=== PATIENT | female | born 1995 | race Caucasian/White ===

== ENCOUNTER 2017-02-11 09:42 | Emergency (ER) | payer OTHER ==
[~2017-02-11] VITALS: Ht 157.5 cm; Wt 53.1 kg
[2017-02-11 11:17] VITALS: BP 113/70
--- NOTE | 2017-02-13 07:39 | Emergency Room Report ---
History of Present Illness General Chief Complaint: Female Urogenital Problems Source: Patient Present Illness HPI Patient presents with complaints of possible retained tampon Patient reports that she feels she had pulled on the string yesterday however did not feel that the rest of the tampon came out with it This happened essentially yesterday Denies any abdominal pain denies any vaginal discomfort Denies any vomiting or diarrhea Patient History Past Medical History: see triage record Pertinent Family History: none Last Menstrual Period: 02/09/17 Now: No : 0 Para: 0 Reviewed Nursing Documentation: PMH: Agreed, PSxH: Agreed Nursing Documentation-PMH Past Medical History: No Stated History Review of Systems All Other Systems: negative except mentioned in HPI Physical Exam Vital Signs Date Time Temp Pulse Resp B/P Pulse Ox O2 Delivery O2 Flow Rate FiO2 02/11/17 09:50 98.1 77 18 113/70 100 Room Air Sp02 EP Interpretation: reviewed, normal General Appearance: well appearing, no apparent distress Head: normocephalic, atraumatic Eyes: bilateral eye EOMI, bilateral eye PERRL ENT: normal pharynx, no angioedema Neck: supple Gastrointestinal: non tender, soft, no mass, no organomegaly Genitourinary: no CVA tenderness, other - Pelvic exam was performed with female nurse (gabriela) all quadrants work evaluated, no obvious signs of retained foreign body, pericervical region was also further evaluated, bimanual exam performed as well without any obvious evidence of retained foreign body Musculoskeletal: normal inspection Neurologic: alert, oriented x3, responsive Skin: no rash, warm/dry Lymphatic: no adenopathy Medical Decision Making Diagnostic Impression: Primary Impression: no obvious foreign body ER Course Given the pelvic exam and the findings Possibly, the foreign body had already came out Missed foreign body is also possible however I did have appropriate visualization of all quadrants in the pericervical region Patient will have further outpatient followup and return with any changes Last Vital Signs Date Time Temp Pulse Resp B/P Pulse Ox O2 Delivery O2 Flow Rate FiO2 02/11/17 11:17 98.1 18 113/70 100 Room Air 02/11/17 09:50 77 Status: improved Disposition: HOME, SELF-CARE Condition: Stable Referrals: NOT CHOSEN IPA/MD,REFERRING (PCP) Patient Instructions: Vaginal Foreign Body, [id number] Additional Instructions: On today's exam we were not able to visualize any obvious foreign body. Possibilities include, that the foreign body had already passed However there is possibility that there was retained foreign body which was not visualized on this visit Discharge instructions has been provided, please return with any increased cramping or fevers Otherwise stable to follow up with primary physician DINESH BRICEÑO D.O. Feb 13, 2017 07:39
== END 2017-02-11 11:34 | disposition home or self-care (01) ==
LOC: EMR 11:02
DX: Z03.89 Encounter for observation for other suspected diseases and conditions ruled out (principal)
CPT/HCPCS: 58999